=== PATIENT | male | born 1985 | race Caucasian/White ===

== ENCOUNTER 2021-08-12 13:20 | Inpatient (IN) | payer MEDICAID, SELFPAY ==
[2021-08-12] VITALS (9 sets, daily range): BP systolic 109–133; BP diastolic 73–97; PULSE 85–98; RESP 16–24; TEMP 36.4–37.7; O2SAT 82–96; BMI 25.1; BMI 33.3
--- NOTE | 2021-08-12 13:48 | CT_ITS ---
STUDY: CTA CHEST REASON FOR EXAM: Male, 35 years old. covid 19 pulmonary embolism RADIATION DOSAGE (If Supplied By Facility): CTDIvol = ( 10.99 ) mGy, DLP = ( 447.71 ) mGycm TECHNIQUE: The examination was performed with the intravenous administration of IV 100mL Isovue-370. Post-processing of the angiographic images was performed, with multiplanar reformation and 3D reconstruction. Individualized dose optimization techniques were used for this CT. COMPARISON: None. FINDINGS: Normal enhancement of the main pulmonary artery and right and left pulmonary arteries. Normal enhancement of the bilateral peripheral pulmonary arteries. There is no demonstrated pulmonary embolism. Normal thoracic aorta and visualized great vessels. There is no demonstrated aortic dissection. Normal heart and pericardium. There are visualized mediastinal lymph nodes, which are within normal size limits, and with normal morphology. Normal hilar regions. Normal visualized trachea and bronchi. The lungs are well expanded. Diffuse bilateral pulmonary infiltrates worse in the posterior aspect of the upper lobes and lower lobes. Normal pleura. Normal chest wall structures. Normal osseous structures. Normal visualized upper abdomen. CT/CTA Chest W/WO Contrast IMPRESSION: No evidence of pulmonary embolism. Diffuse bilateral pulmonary infiltrates more prominent in the lower lobes. Electronically Signed: Sandeep Ricks MD at 15:07 EDT , Service support ,
--- NOTE | 2021-08-12 13:48 | EKG12_ITS ---
Test Reason : SOB Blood Pressure : / mmHG Vent. Rate : 087 BPM Atrial Rate : 087 BPM P-R Int : 156 ms QRS Dur : 092 ms QT Int : 356 ms P-R-T Axes : 041 060 049 degrees QTc Int : 428 ms Normal sinus rhythm Normal ECG Confirmed by KASEY HODGE, TRISH ([id number]), editorial intern REENA MAYBERRY ([id number]) on 08/13/2021 9:05:17 AM Referred By: TERRY Confirmed By:TRISH PARKS MD
--- NOTE | 2021-08-12 13:49 | ED.VIS.DYS ---
HPI History of Present Illness Chief Complaint: Shortness of Breath Informant: patient Narrative Narrative: 35-year-old male states that he is currently on day 10 of Covid. He states that for the past 2 days he feels that his breathing has worsened. He states he is having to take shallow breaths to keep from coughing. He notes that his sputum is productive. He has tried various ilic-apm-bktcugz remedies without relief. He denies any chest pain. He states that he has not had a fever today. He notes intermittent diarrhea body aches and fatigue. [facility] Medical History ADD (attention deficit disorder) Anxiety Encounter for sterilization Home Medications dextroamphetamine-amphetamine 40 mg PO DAILY 06/06/17 [History Last Taken Unknown] Allergy/AdvReac Type Severity Reaction Status Date / Time No Known Allergies Allergy Verified 01/02/20 15:21 Family History (Updated 01/02/20 @ 15:20 by Krystin Leiva) Grandfather Diabetes Cardiac pacemaker Grandmother Diabetes Surgical History No pertinent past surgical history Social History (Updated 08/12/21 @ 13:[address] Eliu Hernandez DO) Smoking Status: Former smoker substance use type: does not use ROS ROS ED Constitutional Constitutional ED: Reports chills and fever(s); Denies weight loss Eyes Eyes: Denies change in vision or diplopia ENT ENT ED: Reports rhinorrhea and sore throat; Denies ear pain Cardiovascular Cardiovascular: Denies chest pain, orthopnea, palpitations or racing heartbeat Respiratory/Chest Respiratory/Chest: Reports cough, dyspnea, dyspnea on exertion and sputum; Denies orthopnea Gastrointestinal Gastrointestinal: Reports diarrhea and nausea; Denies abdominal pain or vomiting Genitourinary Genitourinary ED: Denies dysuria, hematuria or urinary frequency Musculoskeletal Musculoskeletal: Reports myalgias; Denies arthralgias Integumentary Denies abscess or rash Neurologic Neurologic: Reports headache(s); Denies weakness Psychiatric Psychiatric: Denies anxiety, depression, suicidal ideation or suicidal thoughts Endocrine Endocrinology: Denies polydipsia, polyphagia or polyuria Allergic/Immunologic Allergic/Immunologic ED: Denies mouth swelling, tongue swelling or urticaria EXAM Physical Exam Const Vital Signs: 08/12/21 13:23 08/12/21 14:05 08/12/21 14:12 Temperature 97.6 F L 97.6 F L Temperature Source Temporal Temporal Pulse Rate 88 87 Respiratory Rate 24 H 24 H Respiratory Effort Respiratory Depth Respiratory Pattern Blood Pressure 117/77 109/80 Blood Pressure Mean 90 89 Pulse Ox 92 82 96 Oxygen Delivery Method Room Air Room Air Nasal Cannula Oxygen Flow Rate (L/min) 3 08/12/21 14:15 Temperature Temperature Source Pulse Rate Respiratory Rate Respiratory Effort Short of Breath Respiratory Depth Normal Respiratory Pattern Tachypnea Blood Pressure Blood Pressure Mean Pulse Ox Oxygen Delivery Method Nasal Cannula Oxygen Flow Rate (L/min) 3 Positive well nourished and well developed General Appearance ED: well developed HEENT Reports normocephalic, head/scalp atraumatic, TM's clear and moist mucous membranes atraumatic Tympanic Membrane ED: Yes TM's clear Eyes PERRL and EOMs intact bilaterally Neck no lymphadenopathy, supple and no JVD Resp normal respiratory effort and clear to auscultation bilaterally Cardio regular rate, regular rhythm and no murmurs GI normal to inspection, nondistended, normoactive bowel sounds and non-tender Palpation: soft Back/Spine no CVA tenderness and normal ROM Extremity normal to inspection General Extremety ED: Negative for edema General Extremity: Negative for edema Neuro oriented x3 and CN's II-XII intact bilaterally Sensorium / Orientation: alert Motor Exam: strength 5/5 throughout Psych mental status grossly normal Mood & Affect: Negative for depressed or tearful Skin no rashes or lesions noted and no wounds MDM MDM MDM Narrative Medical decision making narrative: Initial triage vitals showed the patient to not be hypoxemia. Orders were entered including a liter of fluid as the patient was noting dark urine and dry mouth and he was going to have a CTA of the chest. After my initial evaluation respiratory therapy noted that he was hypoxic at rest. At rest the patient is 84% on room air. He was placed on 3 L and has been in the mid-90s. However his respiratory rate is still around 30. White count 4.3 hemoglobin 13.8 and platelet chemistry 54. CMP shows elevation of AST and ALT. Troponin. CTA of the chest demonstrates diffuse pulmonary infiltrates but no pulmonary embolism. Ambulation on 3 L shows his oxygen percentage decrease to 86% and he is noticeably more dyspneic. Because he had gotten a liter of fluids earlier when ahead and gave him a dose of Lasix. Patient received Decadron and we will plan on admission. Lab Data Attestation: I reviewed the patient's lab results. Labs: Laboratory Results - last 24 hr 08/12/21 08/12/21 14:10 14:10 WBC 4.3 L RBC 4.57 L Hgb 13.8 Hct 40.3 MCV 88.2 MCH 30.2 MCHC 34.2 RDW Std Deviation 39.8 RDW Coeff of Jennifer 12.4 Plt Count 254 MPV 9.6 Immature Gran % (Auto) 0.700 Neut % (Auto) 69.5 Lymph % (Auto) 22.9 [place] % (Auto) 6.7 Eos % (Auto) 0.0 Baso % (Auto) 0.2 Absolute Neuts (auto) 3.0 Absolute Lymphs (auto) 0.99 Nucleated RBC % 0 Sodium 138 Potassium 3.8 Chloride 102 Carbon Dioxide 27.0 Anion Gap 9 BUN 11 Creatinine 0.84 Estim Creat Clear Calc 125.53 Est GFR (MDRD) Af Amer 133 Est GFR (MDRD) Non-Af 110 BUN/Creatinine Ratio 13.2 Glucose 101 Calcium 8.5 Total Bilirubin 0.70 AST 123 H ALT 249 H Alkaline Phosphatase 96 Troponin I High Sens 8 Total Protein 7.6 Albumin 2.9 L Globulin 4.7 H Albumin/Globulin Ratio 0.6 L Radiography Diagnostic Testing: Clinical Impression(s) from Imaging Studies Chest CTA 08/12/21 13:48 IMPRESSION: No evidence of pulmonary embolism. Diffuse bilateral pulmonary infiltrates more prominent in the lower lobes. Electronically Signed: Sandeep Ricks MD at 15:07 EDT , Service support , EKG Initial EKG: Attestation: I personally reviewed and interpreted this EKG as follows: Comments: Normal sinus rhythm with the ventricular rate of 87 bpm. Discharge Plan Dx/Rx/DC Orders Clinical Impression: Acute hypoxemic respiratory failure due to COVID-19 Disposition Disposition: [facility]
[2021-08-12] MEDS: 0.9% Normal Saline 1,000 ML 1000 ML IV (14:11)
[2021-08-12 14:25] LABS: Absolute Lymphocyte Count 0.99 X10^3/uL (0.83-4.51); Basophil# 0.01 X10^3/uL; Basophil% 0.2 % (0-1); Hematocrit 40.3 % (40-54); Hemoglobin 13.8 g/dL (13.0-16.5); Lymphocyte # 0.99 X10^3/ul (0.83-4.51); Lymphocyte % 22.9 % (19-41); Mean Corp Hgb Conc 34.2 g/dL (32-36); Mean Corpuscular Hgb 30.2 pg (27.0-32.0); Mean Corpuscular Volume 88.2 fL (80-94); Mean Platelet Vol. 9.6 fl (6.2-12.0); Monocyte# 0.29 X10^3/uL; Monocyte% 6.7 % (0-10); NRBC Flagged by Analyzer 0 % (0-5); Neutrophil # 3.01 X10^3/uL (2.7-7.7); Neutrophil % 69.5 % (47-70); Platelet Count 254 K/mm3 (150-450); RBC Distribution Width CV 12.4 % (11.6-14.6); RBC Distribution Width SD 39.8 fl (35.1-43.9); Red Blood Count 4.57 M/mm3 (4.6-6.2); White Blood Count 4.3 K/mm3 (4.4-11.0)
[2021-08-12 14:46] LABS: ALB/GLOB Ratio 0.6 RATIO (0.9-2.4); AST(SGOT) 123 U/L (15-37); Alanine Aminotransfer ALT/SGPT 249 U/L (16-61); Albumin, Serum 2.9 g/dL (3.2-5.0); Alkaline Phosphatase 96 U/L (45-117); Anion Gap 9 (5-15); BUN 11 mg/dL (7-18); BUN/Creat Ratio 13.2 RATIO (10-20); Calcium,Total 8.5 mg/dL (8.5-10.1); Chloride 102 mmol/L (98-107); Creatinine, Serum 0.84 mg/dL (0.70-1.30); EST Glomerular Filtration Rate 110 mL/min (>60); Est Glom Filt Rate - Afr Amer 133 mL/min (>60); Estimated Creatinine Clearance 125.53 ml/min; Globulin 4.7 g/dL (2.2-4.2); Glucose 101 mg/dL (74-106); Potassium 3.8 mmol/L (3.5-5.1); Protein, Total 7.6 g/dL (6.4-8.2); Sodium Level 138 mmol/L (136-145); Troponin-I HS 8 pg/mL (3.0-78.0)
[2021-08-12] MEDS: dexAMETHasone 4 MG Tablet 6 MG PO (15:53)
[2021-08-12] MEDS: Furosemide 40 MG/4 ML Vial IV (15:53)
--- NOTE | 2021-08-12 16:10 | HP.PCM.HOS_ITS ---
HPI - General General Date of Admission: 08/12/21 Date of Service: 08/12/21 Chief Complaint: shortness of breath HPI Narrative MANDY OLIVER, is a 35 M who presents with increasing shortness of breath over the past 2 days. Patient first became ill about 10 days ago and then the shortness of breath started setting in. Patient is having dyspnea with exertion. Patient was checked in the emergency room and was positive for COVID- 19 and underwent a CTA of his chest that she did not show any pulmonary embolism but did show a patchy infiltrates and groundglass opacities throughout. Patient received dexamethasone. He did receive fluids but then when was found patient had COVID-19 he did receive furosemide. He has been coughing up some scant sputum. [facility] Medical History ADD (attention deficit disorder) Anxiety Encounter for sterilization Home Medications dextroamphetamine-amphetamine 40 mg PO DAILY 06/06/17 [History Last Taken Unknown] Allergy/AdvReac Type Severity Reaction Status Date / Time No Known Allergies Allergy Verified 01/02/20 15:21 Family History (Updated 08/12/21 @ 16:[address] Espinoza Liz DO) Grandfather Diabetes Cardiac pacemaker Grandmother Diabetes Surgical History No pertinent past surgical history Social History (Updated 08/12/21 @ 16:[address] Espinoza Liz DO) Smoking Status: Former smoker alcohol intake: current alcohol intake frequency: a few times a month substance use type: does not use ROS ROS Narrative Did lose his sense of smell but that is coming back. All review of systems were negative except as mentioned above in the history of present illness and the other review of systems. Vital Signs Vital Signs Vital Signs: 08/12/21 13:23 08/12/21 14:05 08/12/21 14:12 Temperature 36.4 C L 36.4 C L Temperature Source Temporal Temporal Pulse Rate 88 87 Respiratory Rate 24 H 24 H Respiratory Effort Respiratory Depth Respiratory Pattern Blood Pressure 117/77 109/80 Blood Pressure Mean 90 89 Pulse Ox 92 82 96 Oxygen Delivery Method Room Air Room Air Nasal Cannula Oxygen Flow Rate (L/min) 3 08/12/21 14:15 08/12/21 15:55 Temperature 37.3 C Temperature Source Oral Pulse Rate 89 Respiratory Rate 20 H Respiratory Effort Short of Breath Respiratory Depth Normal Respiratory Pattern Tachypnea Blood Pressure 124/83 H Blood Pressure Mean 96 Pulse Ox 94 Oxygen Delivery Method Nasal Cannula Nasal Cannula Oxygen Flow Rate (L/min) 3 3 Weight Weight: 79.379 kg Body Mass Index (BMI) 25.1 Physical Exam Const alert General Appearance: cooperative HEENT normocephalic and head/scalp atraumatic Resp normal respiratory effort, no retractions, no use of accessory muscles and clear to auscultation bilaterally Cardio regular rate, regular rhythm and S1 normal heart sound GI normal to inspection, nondistended, normoactive bowel sounds, soft to palpation, non-tender and non-distended Extremity normal to inspection and full ROM Skin no rashes or lesions noted Neuro no focal motor deficits Sensorium / Orientation: awake and alert Psych Psych Narrative: Flat affect. Minimal eye contact. Results Lab / Micro Data Attestation: I reviewed the patient's lab results. Result Diagrams: 08/12/21 14:10 08/12/21 14:10 Labs: Laboratory Results - last 24 hr 08/12/21 14:10: WBC 4.3 L, RBC 4.57 L, Hgb 13.8, Hct 40.3, MCV 88.2, MCH 30.2, MCHC 34.2, RDW Std Deviation 39.8, RDW Coeff of Jennifer 12.4, Plt Count 254, MPV 9.6, Immature Gran % (Auto) 0.700, Neut % (Auto) 69.5, Lymph % (Auto) 22.9, [place] % (Auto) 6.7, Eos % (Auto) 0.0, Baso % (Auto) 0.2, Absolute Neuts (auto) 3.0, Absolute Lymphs (auto) 0.99, Nucleated RBC % 0 08/12/21 14:10: Sodium 138, Potassium 3.8, Chloride 102, Carbon Dioxide 27.0, Anion Gap 9, BUN 11, Creatinine 0.84, Estim Creat Clear Calc 125.53, Est GFR (MDRD) Af Amer 133, Est GFR (MDRD) Non-Af 110, BUN/Creatinine Ratio 13.2, Glucose 101, Calcium 8.5, Total Bilirubin 0.70, AST 123 H, ALT 249 H, Alkaline Phosphatase 96, Troponin I High Sens 8, Total Protein 7.6, Albumin 2.9 L, Globulin 4.7 H, Albumin/Globulin Ratio 0.6 L EKG Initial EKG: Attestation: I personally reviewed and interpreted this EKG as follows: Prior EKG tracings: available for review EKG Rhythm Intrepretation: Sinus Rhythm Radiology Impression Chest CTA 08/12/21 13:48 IMPRESSION: No evidence of pulmonary embolism. Diffuse bilateral pulmonary infiltrates more prominent in the lower lobes. Electronically Signed: Sandeep Ricks MD at 15:07 EDT , Service support , Assessment & Plan Assessment/Plan (1) Acute hypoxemic respiratory failure due to COVID-19: PLAN: 1. Acute hypoxic respiratory failure * Was ambulated and dropped down to the mid 80s with 3 L of oxygen. * Wean oxygen as tolerated. * Discussed with the patient about using incentive spirometer. Did comment to the patient that he is taking short shallow breaths and want him to take deeper breaths and will utilize incentive spirometer as well as chest physiotherapy. Advised patient to follow instructions by the nursing staff so that these maneuvers can help him improve overall. * I did discuss with the patient that if his oxygenation worsens then we may need to consider air Vo, BiPAP and even intubation. 2. Acute COVID-19 pneumonia * Unvaccinated * Onset was August 02. Patient will need to quarantine through the . * patient has been started on dexamethasone and will continue for 10 days * Discussed remdesivir with the patient and that it still is emergency used authorization. I recommended it. Patient is agreeable. * Informed patient that he is not a candidate for baricitinib at this point unless his respiratory status worsens and if that happens then we may consult infectious disease to initiate baricitinib. 3. ADD * Continue with dextroamphetamine 4. VTE prophylaxis: High risk. Enoxaparin. 5. CODE STATUS: Addressed with the patient. Patient wishes to be full CODE STATUS. Charges/Coding Visit Charges Inpatient E&M: 45273 Init Hosp L3
[2021-08-12] MEDS: guaiFENesin/Codeine 5 ML UDC 10 ML PO (17:38)
[2021-08-12] MEDS: Acetaminophen 325 MG Tablet 650 MG PO (17:38)
[2021-08-13 02:33] VITALS: BP 122/77; PULSE 83; RESP 18; TEMP 37; O2SAT 93
[2021-08-13 06:05] LABS: Absolute Lymphocyte Count 0.53 X10^3/uL (0.83-4.51); Absolute Neutrophil Count 1.7 X10^3/uL (2.0-7.7); Hematocrit 38.3 % (40-54); Hemoglobin 12.8 g/dL (13.0-16.5); Lymphocyte # 0.53 X10^3/ul (0.83-4.51); Lymphocyte % 21.8 % (19-41); Mean Corp Hgb Conc 33.4 g/dL (32-36); Mean Corpuscular Hgb 29.8 pg (27.0-32.0); Mean Corpuscular Volume 89.3 fL (80-94); Mean Platelet Vol. 9.5 fl (6.2-12.0); Monocyte# 0.18 X10^3/uL; Monocyte% 7.4 % (0-10); NRBC Flagged by Analyzer 0 % (0-5); Neutrophil # 1.71 X10^3/uL (2.7-7.7); Neutrophil % 70.4 % (47-70); POSITIVE DIFFERENTIAL YES; POSITIVE MORPHOLOGY YES; Platelet Count 301 K/mm3 (150-450); RBC Distribution Width CV 12.1 % (11.6-14.6); RBC Distribution Width SD 39.7 fl (35.1-43.9); Red Blood Count 4.29 M/mm3 (4.6-6.2); White Blood Count 2.4 K/mm3 (4.4-11.0)
[2021-08-13 06:11] LABS: Differential Indicated SCAN CRITERIA MET
[2021-08-13 06:38] LABS: ALB/GLOB Ratio 0.6 RATIO (0.9-2.4); AST(SGOT) 96 U/L (15-37); Alanine Aminotransfer ALT/SGPT 222 U/L (16-61); Albumin, Serum 2.7 g/dL (3.2-5.0); Alkaline Phosphatase 102 U/L (45-117); Anion Gap 10 (5-15); BUN 14 mg/dL (7-18); BUN/Creat Ratio 15.7 RATIO (10-20); Calcium,Total 8.2 mg/dL (8.5-10.1); Chloride 101 mmol/L (98-107); Creatinine, Serum 0.89 mg/dL (0.70-1.30); EST Glomerular Filtration Rate 102 mL/min (>60); Est Glom Filt Rate - Afr Amer 123 mL/min (>60); Estimated Creatinine Clearance 84.88 ml/min; Globulin 4.5 g/dL (2.2-4.2); Glucose 137 mg/dL (74-106); Potassium 4.1 mmol/L (3.5-5.1); Protein, Total 7.2 g/dL (6.4-8.2); Sodium Level 137 mmol/L (136-145)
[2021-08-13 06:43] LABS: Differential Comment SCANNED
[2021-08-13 07:42] VITALS: O2SAT 94
[2021-08-13 08:30] VITALS: BP 129/81; PULSE 86; RESP 18; TEMP 36.8; O2SAT 90
[2021-08-13] MEDS: dexAMETHasone 4 MG Tablet 6 MG PO (10:27)
--- NOTE | 2021-08-13 14:07 | NURSING ---
PER PT'S , LEONARDO, PTS SYMPTOMS STARTED AROUND 07/26. PT TESTED COVID+ ON 08/02, THEREFORE, QUARANTINE WOULD END 08/16. ALSO EXPRESSED CONCERN THAT PT HAS BEEN HAVING BLOODY STOOLS ON & OFF X1 MONTH. INFORMATION RELAYED TO DR BRAY.
--- NOTE | 2021-08-13 14:12 | PN.HOSP_ITS ---
Subjective Subjective Follow-up on acute hypoxic respiratory failure/acute COVID-19 pneumonia: Patient was seen and examined. He remains on 6 L of oxygen. No other acute events. Patient also gives a history of occasional bloody stools. This was when he had diarrhea, worse with wiping. None recently. Told him that we will need to monitor that. Objective Data Objective Data Vital Signs: Vital Signs Temp Pulse Resp BP Pulse Ox 98.2 F 86 18 129/81 H 90 08/13/21 08:30 08/13/21 08:30 08/13/21 08:30 08/13/21 08:30 08/13/21 08:30 Oxygen Flow Rate (L/min) 6 Oxygen Delivery Method Room Air Weight: 79.889 kg Body Mass Index (BMI) 33.3 Intake & Output: Intake and Output for Last 24 Hours 08/11/21 08/12/21 08/13/21 23:59 23:59 23:59 Intake Total 1250 / 1250 480 / 480 Output Total 1000 / 1000 400 / 400 Balance 250 / 250 80 / 80 Lab / Micro Data Result Diagrams: 08/13/21 05:40 08/13/21 05:40 Labs: Laboratory Results - last 24 hr 08/12/21 14:10: WBC 4.3 L, RBC 4.57 L, Hgb 13.8, Hct 40.3, MCV 88.2, MCH 30.2, MCHC 34.2, RDW Std Deviation 39.8, RDW Coeff of Jennifer 12.4, Plt Count 254, MPV 9.6, Immature Gran % (Auto) 0.700, Neut % (Auto) 69.5, Lymph % (Auto) 22.9, [place] % (Auto) 6.7, Eos % (Auto) 0.0, Baso % (Auto) 0.2, Absolute Neuts (auto) 3.0, Absolute Lymphs (auto) 0.99, Nucleated RBC % 0 08/12/21 14:10: Sodium 138, Potassium 3.8, Chloride 102, Carbon Dioxide 27.0, Anion Gap 9, BUN 11, Creatinine 0.84, Estim Creat Clear Calc 125.53, Est GFR (MDRD) Af Amer 133, Est GFR (MDRD) Non-Af 110, BUN/Creatinine Ratio 13.2, Glucose 101, Calcium 8.5, Total Bilirubin 0.70, AST 123 H, ALT 249 H, Alkaline Phosphatase 96, Troponin I High Sens 8, Total Protein 7.6, Albumin 2.9 L, Globulin 4.7 H, Albumin/Globulin Ratio 0.6 L 08/13/21 05:40: WBC 2.4 L, RBC 4.29 L, Hgb 12.8 L, Hct 38.3 L, MCV 89.3, MCH 29.8, MCHC 33.4, RDW Std Deviation 39.7, RDW Coeff of Jennifer 12.1, Plt Count 301, MPV 9.5, Immature Gran % (Auto) 0.400, Neut % (Auto) 70.4 H, Lymph % (Auto) 21.8, [place] % (Auto) 7.4, Eos % (Auto) 0.0, Baso % (Auto) 0.0, Absolute Neuts (auto) 1.7 L, Absolute Lymphs (auto) 0.53 L, Nucleated RBC % 0, Differential Comment SCANNED, Diff Path Review March08/13/21 05:40: Sodium 137, Potassium 4.1, Chloride 101, Carbon Dioxide 26.0, Anion Gap 10, BUN 14, Creatinine 0.89, Estim Creat Clear Calc 84.88, Est GFR (MDRD) Af Amer 123, Est GFR (MDRD) Non-Af 102, BUN/Creatinine Ratio 15.7, Glucose 137 H, Calcium 8.2 L, Total Bilirubin 0.60, AST 96 H, ALT 222 H, Alkaline Phosphatase 102, Total Protein 7.2, Albumin 2.7 L, Globulin 4.5 H, Albumin/Globulin Ratio 0.6 L Radiography Diagnostic Testing: Radiology Impression Chest CTA 08/12/21 13:48 IMPRESSION: No evidence of pulmonary embolism. Diffuse bilateral pulmonary infiltrates more prominent in the lower lobes. Electronically Signed: Sandeep Ricks MD at 15:07 EDT , Service support , Physical Exam Narrative Physical exam: General: Alert, Oriented x3, Cooperative, No apparent distress, Well developed, on 5 L of oxygen HEENT: Atraumatic Oral: Moist Mucosa Neck: Supple Lungs: Clear to auscultation Cardiovascular: HS I+II, regular, no murmurs Abdomen: Bowel Sounds Present, Soft, Non Tender Extremities: No edema Assessment & Plan Assessment/Plan (1) Acute hypoxemic respiratory failure due to COVID-19: PLAN: 1. Acute hypoxic respiratory failure secondary to acute COVID-19 pneumonia Patient is currently on 6 L of oxygen CTA chest on admission was negative for acute PE Continue on Decadron and remdesivir Continue to encourage use of incentive spirometer 2. ADHD, on dextroamphetamine Charges/Coding Visit Charges Inpatient E&M: 11416 Subs Hosp L3
--- NOTE | 2021-08-13 14:15 | CASEMGMT ---
RN MICAELA DIESEL PILE DRIVER OPERATOR CM to room to meet with patient for initial transition planning/care coordination assessment. NESSA HINOJOSA introduced self and role at [facility]. Pt voices understanding and consents to assessment at this time. Pt resting in bed in no distress at this time. Pt is A/O at this time and answers all questions appropriately. Care providers, pharmacy, and demographics verified/updated at this time. COVID testing done @ [facility]. was +COVID recently and is out of quarantine. Several of their kids have been ill w/sinus symptoms, but testing so far has come back negative. PCP: Dr Albright Specialists: none Preferred Pharmacy: [facility] Retail Insurance: [employer] Prescription Benefit: Yes Living Will/HPOA: Pt does not currently have LW/HCPOA--information provided. LNOK: , Binta. 4 kids: 12, 10, 4, 2 Living Arrangements: Lives w/his and kids in 2-story home home. Denies difficulty w/stairs. Bathroom on both floors. Bedroom is on 2nd floor. Able to sleep on 1st floor if needed. Independent w/ADL's. works from home, so pt manages most home tasks. Transportation: Pt states drives self and states no transportation concerns at this time. also drives. DME: Denies using any DME. Pt does not have a pulse ox. Encouraged to get one and educated on reason/use. Pt was provided with list of DME providers consistent with the patient's preferred geographic region, medical needs, and insurance network. The pt's states [employer]. HHC/SNF: no hx of either. No needs identified. Pt wishes to return home and states has no concerns with going home at time of discharge. CM to follow for home oxygen needs and any further discharge planning/needs. Pt voices no further concerns/needs at this time. Advised pt to ask for CM if any further questions/concerns/needs arise. Voices understanding. PLAN: Home w/spousal support and discharge plans in place. Follow for any Home O2 needs @ d/c. Janna ELENA RN, CM
[2021-08-13 17:16] VITALS: BP 127/83; PULSE 85; RESP 18; TEMP 36.9; O2SAT 95
[2021-08-13] MEDS: Ascorbic Acid 500 MG Tablet PO (17:16)
[2021-08-13] MEDS: Cholecalciferol (VIT D3) 25 MCG TABLET (1,000 UNITS) PO (17:16)
[2021-08-13 21:52] VITALS: BP 133/85; PULSE 81; RESP 18; TEMP 36.9; O2SAT 93
[2021-08-13 23:00] VITALS: O2SAT 90
[2021-08-14] MEDS: Sodium Chloride 0.65% 1 SPRAY SPRAY.BTL 2 SPRAY NASAL (02:23)
[2021-08-14 02:24] VITALS: BP 119/75; PULSE 67; RESP 20; TEMP 36.7; O2SAT 92
--- NOTE | 2021-08-14 07:47 | DS.PCM_ITS ---
Providers Date of Admission: 08/12/21 Date of Discharge: 08/15/21 Primary Care Physician: Dr. Melanie Albright MD Reason For Visit: COVID 19 Diagnosis Discharge Diagnosis (1) Acute hypoxemic respiratory failure due to COVID-19: Status: Acute Code(s): U07.1 - COVID-19; J96.01 - Acute respiratory failure with hypoxia Medications at Discharge Home Medications dextroamphetamine-amphetamine 40 mg PO DAILY 06/06/17 Hospital Course Operations None Procedures None Summary of Care Provided Minutes Spent on Discharge: 25 Hospital Course: 35-year-old male who is unvaccinated and was admitted on 08/12/21 with acute hypoxic respiratory failure secondary to COVID-19 pneumonia. [facility], started on oxygen, dexamethasone, remdesivir. Patient's oxygen requirement was fluctuating. There were no acute concerns throughout his hospital stay. Patient decided on the evening of 08/14/21 to leave. Was recommended that he does not leave. His oxygen requirements was evaluated. The patient required more than 6 L with ambulation. He however decided to sign out AGAINST MEDICAL ADVICE. Physical Exam Narrative Physical exam: General: Alert, Oriented x3, Cooperative, No apparent distress, Well developed, on 5 L of oxygen HEENT: Atraumatic Oral: Moist Mucosa Neck: Supple Lungs: Clear to auscultation Cardiovascular: HS I+II, regular, no murmurs Abdomen: Bowel Sounds Present, Soft, Non Tender Extremities: No edema Weight / BMI Weight Weight: 79.889 kg Body Mass Index (BMI) 33.3 ABG / Lab / Microbiology Data Result Diagrams: 08/14/21 07:10 08/14/21 07:10 Laboratory: Laboratory Results - last 24 hr 08/14/21 07:10: WBC 8.5, RBC 4.31 L, Hgb 13.0, Hct 38.8 L, MCV 90.0, MCH 30.2, MCHC 33.5, RDW Std Deviation 40.1, RDW Coeff of Jennifer 12.2, Plt Count 409, MPV 9.7, Immature Gran % (Auto) 0.500, Neut % (Auto) 80.8 H, Lymph % (Auto) 11.6 L, [place] % (Auto) 7.0, Eos % (Auto) 0.0, Baso % (Auto) 0.1, Absolute Neuts (auto) 6.9, Absolute Lymphs (auto) 0.98, Nucleated RBC % 0 08/14/21 07:10: Sodium 140, Potassium 3.9, Chloride 106, Carbon Dioxide 26.0, Anion Gap 8, BUN 18, Creatinine 0.82, Estim Creat Clear Calc 132.64, Est GFR (MDRD) Af Amer 137, Est GFR (MDRD) Non-Af 113, BUN/Creatinine Ratio 22.0 H, Glucose 125 H, Calcium 8.6, Total Bilirubin 0.50, AST 65 H, ALT 214 H, Alkaline Phosphatase 103, Total Protein 7.0, Albumin 2.7 L, Globulin 4.3 H, Albumin/Globulin Ratio 0.6 L D/C Instructions Discharge Diet: No restrictions Meaningful Use Info Meaningful Use Diagnoses (Choose all that apply): None applicable Discharge Plan Admission Admit Date/Time: 08/12/21 16:06 Attending Provider: Trang Lai Primary Care Provider: Melanie Albright Discharge Orders/Prescriptions Prescriptions: No Action dextroamphetamine-amphetamine 10 MG tablet 40 mg PO DAILY RF: 0 Referrals / Follow Up: Melanie Albright MD [Primary Care Provider] - Charges/Coding Visit Charges Inpatient E&M: 39345 Disch Hosp
[2021-08-14 07:48] LABS: Absolute Lymphocyte Count 0.98 X10^3/uL (0.83-4.51); Absolute Neutrophil Count 6.9 X10^3/uL (2.0-7.7); Basophil# 0.01 X10^3/uL; Basophil% 0.1 % (0-1); Hematocrit 38.8 % (40-54); Lymphocyte # 0.98 X10^3/ul (0.83-4.51); Lymphocyte % 11.6 % (19-41); Mean Corp Hgb Conc 33.5 g/dL (32-36); Mean Corpuscular Hgb 30.2 pg (27.0-32.0); Mean Platelet Vol. 9.7 fl (6.2-12.0); Monocyte# 0.59 X10^3/uL; NRBC Flagged by Analyzer 0 % (0-5); Neutrophil # 6.86 X10^3/uL (2.7-7.7); Neutrophil % 80.8 % (47-70); POSITIVE MORPHOLOGY YES; Platelet Count 409 K/mm3 (150-450); RBC Distribution Width CV 12.2 % (11.6-14.6); RBC Distribution Width SD 40.1 fl (35.1-43.9); Red Blood Count 4.31 M/mm3 (4.6-6.2); White Blood Count 8.5 K/mm3 (4.4-11.0)
[2021-08-14 07:51] LABS: Differential Indicated SCAN CRITERIA MET
--- NOTE | 2021-08-14 08:06 | PCS.PANDOC ---
PANDEMIC DOCUMENTATION INITIATED: Date: 06/16/2021 Time: 190
[2021-08-14 08:11] LABS: ALB/GLOB Ratio 0.6 RATIO (0.9-2.4); AST(SGOT) 65 U/L (15-37); Alanine Aminotransfer ALT/SGPT 214 U/L (16-61); Albumin, Serum 2.7 g/dL (3.2-5.0); Alkaline Phosphatase 103 U/L (45-117); Anion Gap 8 (5-15); BUN 18 mg/dL (7-18); Calcium,Total 8.6 mg/dL (8.5-10.1); Chloride 106 mmol/L (98-107); Creatinine, Serum 0.82 mg/dL (0.70-1.30); EST Glomerular Filtration Rate 113 mL/min (>60); Est Glom Filt Rate - Afr Amer 137 mL/min (>60); Estimated Creatinine Clearance 132.64 ml/min; Globulin 4.3 g/dL (2.2-4.2); Glucose 125 mg/dL (74-106); Potassium 3.9 mmol/L (3.5-5.1); Sodium Level 140 mmol/L (136-145)
[2021-08-14 08:16] VITALS: O2SAT 93
[2021-08-14 08:40] VITALS: BP 125/81; PULSE 78; RESP 16; TEMP 36.7; O2SAT 93
[2021-08-14] MEDS: dexAMETHasone 4 MG Tablet 6 MG PO (08:50)
[2021-08-14] MEDS: Enoxaparin 40 MG/0.4 ML Syringe SC (08:50)
[2021-08-14] MEDS: Cholecalciferol (VIT D3) 25 MCG TABLET (1,000 UNITS) PO (08:51)
[2021-08-14] MEDS: Ascorbic Acid 500 MG Tablet PO ×2 (08:51→15:15)
--- NOTE | 2021-08-14 13:40 | PN.HOSP_ITS ---
Subjective Subjective Follow-up on acute hypoxic respiratory failure/acute COVID-19 pneumonia: Patient was seen and examined. He feels improved. Denied fever or chills. Objective Data Objective Data Vital Signs: Vital Signs Temp Pulse Resp BP Pulse Ox 98.0 F 78 16 125/81 H 93 08/14/21 08:40 08/14/21 08:40 08/14/21 08:40 08/14/21 08:40 08/14/21 08:40 Oxygen Flow Rate (L/min) 4 Oxygen Delivery Method Nasal Cannula Weight: 79.889 kg Body Mass Index (BMI) 33.3 Intake & Output: Intake and Output for Last 24 Hours 08/12/21 08/13/21 08/14/21 23:59 23:59 23:59 Intake Total 1250 / 1250 1370 / 1370 850 / 850 Output Total 1000 / 1000 400 / 400 Balance 250 / 250 970 / 970 850 / 850 Lab / Micro Data Result Diagrams: 08/14/21 07:10 08/14/21 07:10 Labs: Laboratory Results - last 24 hr 08/14/21 07:10: WBC 8.5, RBC 4.31 L, Hgb 13.0, Hct 38.8 L, MCV 90.0, MCH 30.2, MCHC 33.5, RDW Std Deviation 40.1, RDW Coeff of Jennifer 12.2, Plt Count 409, MPV 9.7, Immature Gran % (Auto) 0.500, Neut % (Auto) 80.8 H, Lymph % (Auto) 11.6 L, [place] % (Auto) 7.0, Eos % (Auto) 0.0, Baso % (Auto) 0.1, Absolute Neuts (auto) 6.9, Absolute Lymphs (auto) 0.98, Nucleated RBC % 0 08/14/21 07:10: Sodium 140, Potassium 3.9, Chloride 106, Carbon Dioxide 26.0, Anion Gap 8, BUN 18, Creatinine 0.82, Estim Creat Clear Calc 132.64, Est GFR (MDRD) Af Amer 137, Est GFR (MDRD) Non-Af 113, BUN/Creatinine Ratio 22.0 H, Glucose 125 H, Calcium 8.6, Total Bilirubin 0.50, AST 65 H, ALT 214 H, Alkaline Phosphatase 103, Total Protein 7.0, Albumin 2.7 L, Globulin 4.3 H, Albumin/Globulin Ratio 0.6 L Physical Exam Narrative Physical exam: General: Alert, Oriented x3, Cooperative, No apparent distress, Well developed, on 5 L of oxygen HEENT: Atraumatic Oral: Moist Mucosa Neck: Supple Lungs: Clear to auscultation Cardiovascular: HS I+II, regular, no murmurs Abdomen: Bowel Sounds Present, Soft, Non Tender Extremities: No edema Assessment & Plan Assessment/Plan (1) Acute hypoxemic respiratory failure due to COVID-19: PLAN: 1. Acute hypoxic respiratory failure secondary to acute COVID-19 pneumonia Patient is currently on 4 L of oxygen CTA chest on admission was negative for acute PE Continue on Decadron and remdesivir Continue to encourage use of incentive spirometer 2. ADHD, on dextroamphetamine Charges/Coding Visit Charges Inpatient E&M: 20519 Subs Hosp L2
[2021-08-14 15:09] VITALS: BP 131/71; PULSE 77; RESP 18; TEMP 36.7; O2SAT 93
[2021-08-14 18:25] VITALS: O2SAT 86; O2SAT 87; O2SAT 88; O2SAT 90
--- NOTE | 2021-08-14 18:44 | NURSING ---
SPOKE WITH PT'S ON PHONE. SHE STATED [facility] ISN'T GOING TO TAKE ANY MORE REMDESIVIR OR ANY MORE TX SHE ASKED THIS NURSE TO GO BACK AND EXPLAIN HIS RIGHTS TO HIM ABOUT BEING DISCHARGED OR LEAVING AMA. PREFORMED WALKING PULSE OX AND ADVISED PT TO WAIT UNTIL AT LEAST TOMORROW TO DECIDE. PT REQUESTED THAT I CONTACT DR. RAMIREZ ABOUT DISCHARGE. MARIELA HAS PLACED A TEXT TO DR. RAMIREZ.
--- NOTE | 2021-08-14 21:11 | PCM.PN.BLA ---
Progress Note Noted by nursing staff that patient signed out AMA.
--- NOTE | 2021-08-14 21:14 | NURSING ---
Patient called out wanting to sign himself out AMA. This RN entered room and patient was angry, stating I do no appreciate waiting two hours to get me my mask and paperwork to leave. This RN informed him that we were told by previous shift that patient was still considering AMA and final choice had not been made. Patient refused to sign AMA paperwork. Escorted off of unit, notified physician of AMA.
[2021-08-15 09:34] LABS: Pathologist Review Reviewed
== END 2021-08-14 21:00 | disposition left against medical advice (07) | DRG 137 ==
LOC: ED 15:40 → MS3 16:21
PROVIDERS: Emergency Provider Emergency Medicine; PCP Internal Medicine; Visit Provider Internal Medicine
DX: U07.1 COVID-19 (principal); J96.01 Acute respiratory failure with hypoxia; J12.82 Pneumonia due to coronavirus disease 2019; F98.8 Other specified behavioral and emotional disorders with onset usually occurring in childhood and adolescence; R19.7 Diarrhea, unspecified; Z28.3 Underimmunization status
CPT/HCPCS: 36415; 71275; 80053; 84484; 85025; 93005; 94668; 99251; 99284; J7030; J7050; Q9967; A4216; G0463; J1940